=== PATIENT | female | born 1965 | race American Indian/Alaskan Native ===

== ENCOUNTER 2016-08-24 20:06 | Emergency (ER) | payer MEDICARE | END 2016-08-24 22:34 | disposition left against medical advice (07) | LOC: ED 20:06 | DX: M79.671 Pain in right foot (principal); Z53.21 Procedure and treatment not carried out due to patient leaving prior to being seen by health care provider ==

== ENCOUNTER 2016-08-25 13:34 | Emergency (ER) | payer OTHER, MEDICARE ==
[2016-08-25 15:09] VITALS: BP 154/95
[2016-08-25] MEDS ORDERED: NORCO 10/325 PO ONE (16:07)
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
== END 2016-08-25 17:56 | disposition home or self-care (01) ==
LOC: ED 13:34
DX: M79.671 Pain in right foot (principal); I10 Essential (primary) hypertension; E11.9 Type 2 diabetes mellitus without complications; K21.9 Gastro-esophageal reflux disease without esophagitis; F32.9 Major depressive disorder, single episode, unspecified; J45.909 Unspecified asthma, uncomplicated; J44.9 Chronic obstructive pulmonary disease, unspecified; F17.200 Nicotine dependence, unspecified, uncomplicated; F12.90 Cannabis use, unspecified, uncomplicated; Z79.82 Long term (current) use of aspirin; V89.2XXA Person injured in unspecified motor-vehicle accident, traffic, initial encounter; W22.11XA Striking against or struck by driver side automobile airbag, initial encounter; Y93.89 Activity, other specified; Y99.9 Unspecified external cause status; Y92.410 Unspecified street and highway as the place of occurrence of the external cause

== ENCOUNTER 2017-03-20 10:21 | Emergency (ER) | payer MEDICARE ==
[2017-03-20 11:25] LABS: Basophils % (Auto) 0.7 % (0.0-1.8); Eosinophils % (Auto) 4.6 % (0.0-4.3); Hematocrit 43.6 % (30.3-42.9); Hemoglobin 15.1 gm/dl (10.1-14.3); Mean Corpuscular HGB Conc 35 % (30-34); Mean Corpuscular Hemoglobin 31 pg (28-32); Mean Corpuscular Volume 90 fl (79-97); Platelet Count 172 K/mm3 (140-440); Red Blood Count 4.83 M/mm3 (3.65-5.03); Red Cell Distribution Width 13.7 % (13.2-15.2); White Blood Count 7.2 K/mm3 (4.5-11.0)
[2017-03-20 11:43] LABS: Anion Gap 17 mmol/L; BUN/Creatinine Ratio 14.28; Blood Urea Nitrogen 10 mg/dL (7-17); Calcium 9.2 mg/dL (8.4-10.2); Carbon Dioxide 26 mmol/L (22-30); Chloride 102.2 mmol/L (98-107); Glucose 108 mg/dL (65-100); Potassium 4.3 mmol/L (3.6-5.0); Sodium 141 mmol/L (137-145)
[2017-03-20] MEDS ORDERED: SUBLIMAZE IV ONE (17:35)
[2017-03-20] MEDS ORDERED: NACL 0.9% 1000 ML 1,000 ML IV ONE (17:35)
[2017-03-20] MEDS ORDERED: PEPCID PO ONE (17:36)
[2017-03-20] MEDS ORDERED: ZOFRAN IV ONE (17:36)
--- NOTE | 2017-03-20 18:20 | Emergency Department Report ---
HPI - General Chief Complaint: Chest Pain Time Seen by Provider: 03/20/17 16:40 - HPI HPI: The patient is a 51-year-old female who presents for evaluation of chest pain. The patient reports chest pain for the past 8 hours, constant since onset, 9/10 in severity, sharp in quality, exacerbated with movement. She submits that she believes her pain is secondary to stress/anxiety. The patient denies fever, trauma to the chest or back, syncope, hemoptysis, dyspnea, unilateral leg swelling, oral contraceptive use, recent immobilization, history of DVT or PE, recent cancer, history of familial coagulation disorder. ED Past Medical Hx - Past Medical History Previous Medical History?: Yes Hx Hypertension: Yes Hx Diabetes: Yes (oral) Hx GERD: Yes Hx Sickle Cell Disease: Yes (trait) Hx Psychiatric Treatment: Yes (DEPRESSION, PANIC ATTACKS) Hx Asthma: Yes Hx COPD: Yes Additional medical history: back pain - Surgical History Past Surgical History?: Yes Additional Surgical History: PARTIAL HYSTERECTOMY. RIGHT ACHILES TENDON REPAIR. FIBROIDS - Social History Smoking Status: Current Every Day Smoker Substance Use Type: Prescribed - Medications Home Medications: Home Medications Medication Instructions Recorded Confirmed Last Taken Type Acetaminophen/Codeine [Tylenol 1 tab PO Q6H PRN #7 tab 11/13/14 06/04/16 Rx /Codeine # 3 tab] ALBUTEROL NEB's [Proventil 0.083% 1.25 mg INHALATION PRN PRN 12/19/15 06/04/16 06/04/16 06:30 History NEBS] Aspirin [Adult Low Dose Aspirin EC] 81 mg PO DAILY 12/19/15 06/04/16 05/28/16 History Cyanocobalamin [Vitamin B-12] 1,000 mcg IM QWEEK 12/19/15 06/04/16 04/30/16 History Ergocalciferol [Vitamin D2] 1 cap PO QWEEK 12/19/15 06/04/16 05/28/16 History Fluticasone [Flonase] 1 spray NS QDAY 12/19/15 06/04/16 06/03/16 18:00 History HYDROcodone/APAP 7.5-325 [[place] 1 each PO Q6HR PRN 12/19/15 06/04/16 05/28/16 History 7.5-325 mg TAB] Hydrochlorothiazide [HCTZ] 50 mg PO QWEEK 12/19/15 06/04/16 05/21/16 History Lisinopril/Hydrochlorothiazide 1 tab PO DAILY 12/19/15 06/04/16 06/03/16 18:00 History [Lisinopril-Hctz 20-12.5 mg Tab] Simvastatin [Zocor TAB] 40 mg PO QHS 12/19/15 06/04/16 06/03/16 18:00 History DULoxetine [Cymbalta] 30 mg PO BID 06/04/16 06/04/16 06/03/16 16:00 History Cyclobenzaprine HCl [Flexeril 5 MG 5 mg PO Q8HR PRN #15 tab 03/20/17 Unknown Rx TAB] ED Review of Systems ROS: Stated complaint: CHEST PAIN Other details as noted in HPI Constitutional: denies: fever ENT: denies: throat or neck pain Respiratory: denies: cough, shortness of breath Cardiovascular: reports chest pain Endocrine: denies unexplained weight loss or gain Gastrointestinal: denies: abdominal pain, nausea Genitourinary: denies: dysuria Musculoskeletal: denies: leg swelling Skin: denies: rash Neurological: denies: headache Hematological/Lymphatic: denies: easy bleeding or easy bruising Psych: denies sadness or hopelessness Physical Exam - Physical Exam Vital Signs: Vital Signs 03/20/17 03/20/17 03/20/17 10:49 16:30 16:31 Temperature 98.3 F 98.1 F Pulse Rate 79 68 Respiratory 18 20 20 Rate Blood Pressure 123/67 Blood Pressure 121/78 [Left] O2 Sat by Pulse 98 100 100 Oximetry Physical Exam: General: well-nourished, well-developed, no acute distress Head: Normocephalic, atraumatic Eyes: normal sclera ENT: Mucous membranes are pale and dry Neck: No neck stiffness, no cervical adenopathy Respiratory: Breath sounds equal bilaterally, no wheezing, rales, or rhonchi Cardio: S1 and S2 present, no murmurs, rubs, gallops, capillary refill is delayed Abdomen: Normoactive bowel sounds, soft abdomen, no rigidity, no guarding or rebound tenderness Chest WALL/Back: No tenderness to palpation of the chest wall, pain reporduced with abduction of the arms bilaterally at the shoulder joints Musc: No pitting edema Skin: No rash Neuro: no facial drooping, normal speech Psych: Normal affect ED Course Vital Signs 03/20/17 03/20/17 03/20/17 10:49 16:30 16:31 Temperature 98.3 F 98.1 F Pulse Rate 79 68 Respiratory 18 20 20 Rate Blood Pressure 123/67 Blood Pressure 121/78 [Left] O2 Sat by Pulse 98 100 100 Oximetry ED Medical Decision Making - Lab Data Result diagrams: 03/20/17 11:00 03/20/17 11:00 - Medical Decision Making The patient was seen and examined by myself. The patient is placed on a quality assurance monitor chassis and continuous pulse ox. On initial evaluation, the patient was found to be in no distress. EKG was negative for findings suggestive of acute cardiac infarct. Labs and imaging are obtained. Chest x-ray is negative for pneumothorax, focal consolidation, pulmonary vascular congestion, pleural effusion, or other obvious acute cardiopulmonary disease process. Lab results revealed elevated hemoglobin and hematocrit, consistent with hemoconcentration and exam findings of dehydration, and otherwise labs were non-concerning including levels of troponin, WBC, electrolytes, renal function. The patient given 1 L normal saline fluid bolus for treatment of her dehydration, and IV morphine for treatment of her pain. The patient was reevaluated and reported that their symptoms were markedly improved. As the patient has a RIKKI risk score less than 2, and a well's score less than 2, the patient is at low risk of ACS or pulmonary emboli etiology of their symptoms. The patient is stable for discharge with outpatient follow-up. The patient is given follow-up and return instructions. The patient expressed understanding and agreed with the plan. The patient is discharged in stable condition. Critical care attestation.: If time is entered above; I have spent that time in minutes in the direct care of this critically ill patient, excluding procedure time. ED Disposition Clinical Impression: Acute chest pain, Dehydration Disposition: - TO HOME OR SELFCARE Is pt being admited?: No Does the pt Need Aspirin: No Condition: Stable Instructions: Chest Pain (ED), Costochondritis (ED) Referrals: LESLIE BRANDT MD [Primary Care Provider] - 3-5 Days Time of Disposition: 18:31
--- NOTE | 2017-03-20 19:10 | XRay Report ---
FINAL REPORT PROCEDURE: XR CHEST 1V AP TECHNIQUE: Chest radiograph anteroposterior view. CPT 08926 HISTORY: chest pain COMPARISON: No prior studies are available for comparison. FINDINGS: Heart: Normal. Mediastinum/Vessels: Normal. Lungs/Pleural space: Normal. Bony thorax: No acute osseous abnormality. Life support devices: None. IMPRESSION: No acute cardiopulmonary abnormality.
[2017-03-20 22:51] VITALS: BP 128/77
== END 2017-03-20 22:51 | disposition home or self-care (01) ==
LOC: ED 10:21
DX: R07.9 Chest pain, unspecified (principal); E86.0 Dehydration; I10 Essential (primary) hypertension; E11.9 Type 2 diabetes mellitus without complications; J45.909 Unspecified asthma, uncomplicated; J44.9 Chronic obstructive pulmonary disease, unspecified; F17.200 Nicotine dependence, unspecified, uncomplicated
CPT/HCPCS: 36415; 71010; 80048; 84484; 85025; 93005; 93010; 96361; 96374; 96375; 99284; J2405; J3010; J7030

== ENCOUNTER 2017-08-16 04:34 | Emergency (ER) | payer MEDICARE | END 2017-08-16 04:45 | disposition left against medical advice (07) | LOC: ED 04:34 | DX: R42 Dizziness and giddiness (principal); R10.9 Unspecified abdominal pain; Z53.21 Procedure and treatment not carried out due to patient leaving prior to being seen by health care provider ==

== ENCOUNTER 2019-01-25 06:46 | Outpatient (CLI) | payer MEDICARE ==
--- NOTE | 2019-01-25 08:33 | Magnetic Resonance Report ---
MRI lumbar spine without contrast HISTORY: LUMBAR SPONDYLOSIS/M47.817spondylosis without myelopathy or radic. Patient also complains o f right-sided foot numbness and pain. TECHNIQUE: Multiplanar, multiphasic imaging performed without the use of intravenous contrast. COMPARISON: None FINDINGS: Alignment: Normal. Soft tissues: No cord signal abnormality identified. No significant incidental soft tissue finding. Levels: T11/12-L2/3: Mild discogenic DJD and facet arthropathy with no significant disc bulge, canal stenosis , or foraminal stenosis. L3/4: Mild-moderate discogenic DJD and facet arthropathy with ligamentum flavum hypertrophy. There is resultant mild bilateral foraminal stenosis. There is mild canal narrowing as well, but no significa nt stenosis. L4/5-L5/S1: Mild discogenic DJD with moderate facet arthropathy, very small/small broad-based disc bu lges, and ligamentum flavum hypertrophy. This constellation of findings results in mild canal narrowi ng but no significant stenosis, and mild bilateral foraminal stenosis at both levels. IMPRESSION: Multilevel spondylosis as detailed level by level above. Signer Name: John Ho MD Signed: 01/25/2019 8:29 AM Workstation Name: [email or web address]
== END 2019-01-25 06:47 | disposition home or self-care (01) ==
LOC: MRI 06:46
PROVIDERS: ATTEND Physical Medicine & Rehabilitation Pain Medicine
DX: M47.816 Spondylosis without myelopathy or radiculopathy, lumbar region (principal); M48.07 Spinal stenosis, lumbosacral region; E78.00 Pure hypercholesterolemia, unspecified; J44.9 Chronic obstructive pulmonary disease, unspecified; K21.9 Gastro-esophageal reflux disease without esophagitis
CPT/HCPCS: 72148

== ENCOUNTER 2021-07-26 09:33 | Emergency (ER) | payer BC, MEDICARE ==
[2021-07-26] MEDS ORDERED: HYDROmorphone 1 MG/1 ML INJ IV ONE ×3 (11:42→16:23)
[2021-07-26] MEDS ORDERED: SODIUM CHLORIDE 0.9% 1000 ML 1,000 ML IV ONE (11:42)
[2021-07-26] MEDS ORDERED: ONDANSETRON 4 MG/2 ML INJ IV ONE (11:42)
[2021-07-26 11:55] LABS: Bilirubin,Urine NEG (Negative); Blood,Urine NEG (Negative); Color,Urine Yellow (Yellow); Protein,Urine <15 mg/dL mg/dL (Negative); RBC,Urine < 1.0 /HPF (0.0-6.0); Urobilinogen,Urine < 2.0 mg/dL (<2.0); WBC,Urine < 1.0 /HPF (0.0-6.0)
[2021-07-26 12:03] LABS: Amphetamine Screen,Urine Negative; Benzodiazepines Screen,Urine Negative; Cannabinoid Screen,Urine Negative; Cocaine Screen,Urine Negative; Methadone Screen,Urine Negative; Opiate Screen,Urine Negative
[2021-07-26 12:12] LABS: Basophils # (Auto) 0.1 K/mm3 (0.0-0.1); Eosinophils # (Auto) 0.3 K/mm3 (0.0-0.4); Eosinophils % (Auto) 5.1 % (0.0-4.3); Hematocrit 44.9 % (30.3-42.9); Hemoglobin 14.7 gm/dl (10.1-14.3); Lymphocytes # (Auto) 2.6 K/mm3 (1.2-5.4); Lymphocytes % (Auto) 44.5 % (13.4-35.0); Mean Corpuscular HGB Conc 33 % (30-34); Mean Corpuscular Volume 92 fl (79-97); Monocytes # (Auto) 0.5 K/mm3 (0.0-0.8); Monocytes % (Auto) 8.8 % (0.0-7.3); Platelet Count 211 K/mm3 (140-440); Red Blood Count 4.86 M/mm3 (3.65-5.03); Red Cell Distribution Width 13.5 % (13.2-15.2)
--- NOTE | 2021-07-26 12:13 | Emergency Department Report ---
ED N/V/D HPI - General Chief complaint: Weakness Stated complaint: weakness Time Seen by Provider: 07/26/21 11:18 Source: EMS Mode of arrival: Stretcher Limitations: No Limitations - History of Present Illness Initial comments: 56-year-old female with past medical history morbid obesity, COPD, diabetes, GERD, hypertension, depression, chronic pain secondary to peripheral neuropathy currently in pain management presents to the hospital with complaints of severe lower extremity pain again a difficult for her to work. Patient states for the last 2 days she has nausea and vomiting with p.o. intolerance to ambulate tolerating her medications including her blood pressure medication and pain medication. She complains of moderate pelvic abdominal pain worse on the left and with palpation. Denies diarrhea, hematemesis, fever, or dysuria. She has been unable to tolerate her gabapentin 800 mg 3 times daily and Percocet 5/325 3 times daily secondary to vomiting. She now presents with severe neuropathy pain from her toes radiating to her back limiting her ability to stand up and ambulate. Multiple patient has had multiple abdominal surgery secondary to uterine fibroids and hysterectomy. Patient is vaccinated for COVID. PMD: Dr. Kennedy. Pain management doctor: Dr. Patel - Related Data Home Medications Medication Instructions Recorded Confirmed Last Taken ALBUTEROL NEB's [Proventil 0.083% 1.25 mg INHALATION PRN PRN 12/19/15 06/04/16 06/04/16 06:30 NEBS] Aspirin [Adult Low Dose Aspirin EC] 81 mg PO DAILY 12/19/15 06/04/16 05/28/16 Cyanocobalamin [Vitamin B-12] 1,000 mcg IM QWEEK 12/19/15 06/04/16 04/30/16 Ergocalciferol [Vitamin D2] 1 cap PO QWEEK 12/19/15 06/04/16 05/28/16 Fluticasone [Flonase] 1 spray NS QDAY 12/19/15 06/04/16 06/03/16 18:00 HYDROcodone/APAP 7.5-325 [[place] 1 each PO Q6HR PRN 12/19/15 06/04/16 05/28/16 7.5-325 mg TAB] Hydrochlorothiazide [HCTZ] 50 mg PO QWEEK 12/19/15 06/04/16 05/21/16 Lisinopril/Hydrochlorothiazide 1 tab PO DAILY 12/19/15 06/04/16 06/03/16 18:00 [Lisinopril-Hctz 20-12.5 mg Tab] Simvastatin (NF) [Zocor TAB] 40 mg PO QHS 12/19/15 06/04/16 06/03/16 18:00 DULoxetine [Cymbalta] 30 mg PO BID 06/04/16 06/04/16 06/03/16 16:00 Previous Rx's Medication Instructions Recorded Last Taken Type Acetaminophen/Codeine [Tylenol 1 tab PO Q6H PRN #7 tab 11/13/14 05/07/16 Rx /Codeine # 3 tab] Cyclobenzaprine HCl [Flexeril 5 MG 5 mg PO Q8HR PRN #15 tab 03/20/17 Unknown Rx TAB] Ondansetron [Zofran Odt] 4 mg PO Q8HR PRN #20 tab.rapdis 07/26/21 Unknown Rx Allergies Allergy/AdvReac Type Severity Reaction Status Date / Time acetaminophen [From Lortab] AdvReac Itching Verified 07/26/21 12:44 hydrocodone bitartrate AdvReac Itching Verified 07/26/21 12:44 [From Lortab] ED Review of Systems ROS: Stated complaint: weakness Other details as noted in HPI Comment: All other systems reviewed and negative ED Past Medical Hx - Past Medical History Previous Medical History?: Yes Hx Hypertension: Yes Hx Diabetes: Yes (oral) Hx GERD: Yes Hx Sickle Cell Disease: Yes (trait) Hx Psychiatric Treatment: Yes (DEPRESSION, PANIC ATTACKS) Hx Asthma: Yes Hx COPD: Yes Additional medical history: back pain - Surgical History Past Surgical History?: Yes Additional Surgical History: PARTIAL HYSTERECTOMY. RIGHT ACHILES TENDON REPAIR. FIBROIDS - Social History Smoking Status: Never Smoker Substance Use Type: None - Medications Home Medications: Home Medications Medication Instructions Recorded Confirmed Last Taken Type Acetaminophen/Codeine [Tylenol 1 tab PO Q6H PRN #7 tab 11/13/14 06/04/16 05/07/16 Rx /Codeine # 3 tab] ALBUTEROL NEB's [Proventil 0.083% 1.25 mg INHALATION PRN PRN 12/19/15 06/04/16 06/04/16 06:30 History NEBS] Aspirin [Adult Low Dose Aspirin EC] 81 mg PO DAILY 12/19/15 06/04/16 05/28/16 History Cyanocobalamin [Vitamin B-12] 1,000 mcg IM QWEEK 12/19/15 06/04/16 04/30/16 History Ergocalciferol [Vitamin D2] 1 cap PO QWEEK 12/19/15 06/04/16 05/28/16 History Fluticasone [Flonase] 1 spray NS QDAY 12/19/15 06/04/16 06/03/16 18:00 History HYDROcodone/APAP 7.5-325 [[place] 1 each PO Q6HR PRN 12/19/15 06/04/16 05/28/16 History 7.5-325 mg TAB] Hydrochlorothiazide [HCTZ] 50 mg PO QWEEK 12/19/15 06/04/16 05/21/16 History Lisinopril/Hydrochlorothiazide 1 tab PO DAILY 12/19/15 06/04/16 06/03/16 18:00 History [Lisinopril-Hctz 20-12.5 mg Tab] Simvastatin (NF) [Zocor TAB] 40 mg PO QHS 12/19/15 06/04/16 06/03/16 18:00 History DULoxetine [Cymbalta] 30 mg PO BID 06/04/16 06/04/16 06/03/16 16:00 History Cyclobenzaprine HCl [Flexeril 5 MG 5 mg PO Q8HR PRN #15 tab 03/20/17 Unknown Rx TAB] Ondansetron [Zofran Odt] 4 mg PO Q8HR PRN #20 tab.rapdis 07/26/21 Unknown Rx ED Physical Exam - General Limitations: No Limitations - Other Other exam information: General: No acute distress Head: Atraumatic Eyes: normal appearance ENT: Moist mucous membranes Neck: Normal appearance, no midline tenderness Chest: Clear to auscultation bilaterally CV: Regular rate and rhythm. Heart rate 76 during my examination Abdomen: Soft, normal bowel sounds, nontender, nondistended, no rebound or guarding Back: Normal inspection Extremity: Mild pedal pitting edema, 2+ DP pulses, no discoloration or lesion Neuro: Alert O x 3, no facial asymmetry, speech clear, limited movement of left toes chronic as per pain, decreased sensation to bilateral feet chronic as per patient Psych: Appropriate behavior Skin: No rash ED Course Vital Signs 07/26/21 07/26/21 07/26/21 09:41 10:09 11:37 Temperature 98.2 F Pulse Rate 140 H Respiratory 18 Rate Blood Pressure Blood Pressure 168/98 [Left] O2 Sat by Pulse 100 96 100 Oximetry 07/26/21 07/26/21 07/26/21 11:45 12:00 12:14 Temperature 98.1 F Pulse Rate 83 74 Respiratory 16 14 15 Rate Blood Pressure 173/108 150/94 Blood Pressure 173/108 [Left] O2 Sat by Pulse 98 95 Oximetry 07/26/21 07/26/21 07/26/21 12:15 12:31 12:45 Temperature Pulse Rate 75 68 68 Respiratory 17 13 11 L Rate Blood Pressure 156/100 176/94 176/94 Blood Pressure [Left] O2 Sat by Pulse 98 95 98 Oximetry 07/26/21 07/26/21 07/26/21 13:01 13:15 13:31 Temperature Pulse Rate 82 77 69 Respiratory 13 12 11 L Rate Blood Pressure 173/99 173/99 163/96 Blood Pressure [Left] O2 Sat by Pulse 96 97 99 Oximetry 07/26/21 07/26/21 07/26/21 13:39 13:45 14:00 Temperature 98.6 F Pulse Rate 78 66 Respiratory 21 28 H Rate Blood Pressure 163/96 159/61 Blood Pressure [Left] O2 Sat by Pulse 99 100 Oximetry 07/26/21 07/26/21 07/26/21 14:29 14:31 14:35 Temperature Pulse Rate 68 83 Respiratory 13 16 12 Rate Blood Pressure 159/61 159/61 Blood Pressure [Left] O2 Sat by Pulse 100 99 Oximetry 07/26/21 07/26/21 07/26/21 14:45 15:01 15:15 Temperature Pulse Rate 67 66 69 Respiratory 11 L 13 11 L Rate Blood Pressure 148/90 156/95 156/95 Blood Pressure [Left] O2 Sat by Pulse 98 97 99 Oximetry 07/26/21 15:24 Temperature 98.4 F Pulse Rate Respiratory Rate Blood Pressure Blood Pressure [Left] O2 Sat by Pulse Oximetry - Reevaluation(s) Reevaluation #1: 07/26/21 15:42 pain currently 02/06, additional Dilaudid will be provided prior to discharge ED Medical Decision Making - Lab Data Result diagrams: 07/26/21 11:25 07/26/21 11:25 Lab Results 07/26/21 07/26/21 07/26/21 Range/Units 11:25 11:25 11:25 WBC 5.8 (4.5-11.0) K/mm3 RBC 4.86 (3.65-5.03) M/mm3 Hgb 14.7 H (10.1-14.3) gm/dl Hct 44.9 H (30.3-42.9) % MCV 92 (79-97) fl MCH 30 (28-32) pg MCHC 33 (30-34) % RDW 13.5 (13.2-15.2) % Plt Count 211 (140-440) K/mm3 Lymph % (Auto) 44.5 H (13.4-35.0) % [place] % (Auto) 8.8 H (0.0-7.3) % Eos % (Auto) 5.1 H (0.0-4.3) % Baso % (Auto) 1.0 (0.0-1.8) % Lymph # (Auto) 2.6 (1.2-5.4) K/mm3 [place] # (Auto) 0.5 (0.0-0.8) K/mm3 Eos # (Auto) 0.3 (0.0-0.4) K/mm3 Baso # (Auto) 0.1 (0.0-0.1) K/mm3 Seg Neutrophils % 40.6 (40.0-70.0) % Seg Neutrophils # 2.4 (1.8-7.7) K/mm3 Sodium 141 (137-145) mmol/L Potassium 4.4 (3.6-5.0) mmol/L Chloride 104.5 (98-107) mmol/L Carbon Dioxide 26 (22-30) mmol/L Anion Gap 15 mmol/L BUN 9 (7-17) mg/dL Creatinine 0.5 L (0.6-1.2) mg/dL Estimated GFR > 60 ml/min BUN/Creatinine Ratio 18 % Glucose 129 H (65-100) mg/dL POC Glucose 120 H (70-105) mg/dL Calcium 9.0 (8.4-10.2) mg/dL Magnesium (1.7-2.3) mg/dL Total Bilirubin 0.40 (0.1-1.2) mg/dL AST 17 (5-40) units/L ALT 26 (7-56) units/L Alkaline Phosphatase 85 (35-129) units/L Troponin T < 0.010 (0.00-0.029) ng/mL Total Protein 6.5 (6.3-8.2) g/dL Albumin 4.1 (3.9-5) g/dL Albumin/Globulin Ratio 1.7 % Lipase (13-60) units/L TSH (0.270-4.200) mlU/mL Free T4 (0.76-1.46) ng/dL Urine Color (Yellow) Urine Turbidity (Clear) Urine pH (5.0-7.0) Ur Specific [place] (1.003-1.030) Urine Protein (Negative) mg/dL Urine Glucose (UA) (Negative) mg/dL Urine Ketones (Negative) mg/dL Urine Blood (Negative) Urine Nitrite (Negative) Urine Bilirubin (Negative) Urine Urobilinogen (<2.0) mg/dL Ur Leukocyte Esterase (Negative) Urine WBC (Auto) (0.0-6.0) /HPF Urine RBC (Auto) (0.0-6.0) /HPF Urine Opiates Screen Urine Methadone Screen Ur Barbiturates Screen Ur Phencyclidine Scrn Ur Amphetamines Screen U Benzodiazepines Scrn Urine Cocaine Screen U Marijuana (THC) Screen Drugs of Abuse Note 07/26/21 07/26/21 07/26/21 Range/Units 11:30 11:30 Unknown WBC (4.5-11.0) K/mm3 RBC (3.65-5.03) M/mm3 Hgb (10.1-14.3) gm/dl Hct (30.3-42.9) % MCV (79-97) fl MCH (28-32) pg MCHC (30-34) % RDW (13.2-15.2) % Plt Count (140-440) K/mm3 Lymph % (Auto) (13.4-35.0) % [place] % (Auto) (0.0-7.3) % Eos % (Auto) (0.0-4.3) % Baso % (Auto) (0.0-1.8) % Lymph # (Auto) (1.2-5.4) K/mm3 [place] # (Auto) (0.0-0.8) K/mm3 Eos # (Auto) (0.0-0.4) K/mm3 Baso # (Auto) (0.0-0.1) K/mm3 Seg Neutrophils % (40.0-70.0) % Seg Neutrophils # (1.8-7.7) K/mm3 Sodium (137-145) mmol/L Potassium (3.6-5.0) mmol/L Chloride (98-107) mmol/L Carbon Dioxide (22-30) mmol/L Anion Gap mmol/L BUN (7-17) mg/dL Creatinine (0.6-1.2) mg/dL Estimated GFR ml/min BUN/Creatinine Ratio % Glucose (65-100) mg/dL POC Glucose (70-105) mg/dL Calcium (8.4-10.2) mg/dL Magnesium 2.00 (1.7-2.3) mg/dL Total Bilirubin (0.1-1.2) mg/dL AST (5-40) units/L ALT (7-56) units/L Alkaline Phosphatase (35-129) units/L Troponin T (0.00-0.029) ng/mL Total Protein (6.3-8.2) g/dL Albumin (3.9-5) g/dL Albumin/Globulin Ratio % Lipase (13-60) units/L TSH 1.090 (0.270-4.200) mlU/mL Free T4 1.03 (0.76-1.46) ng/dL Urine Color Yellow (Yellow) Urine Turbidity Slightly-cloudy (Clear) Urine pH 6.0 (5.0-7.0) Ur Specific [place] 1.010 (1.003-1.030) Urine Protein <15 mg/dl (Negative) mg/dL Urine Glucose (UA) Neg (Negative) mg/dL Urine Ketones Neg (Negative) mg/dL Urine Blood Neg (Negative) Urine Nitrite Neg (Negative) Urine Bilirubin Neg (Negative) Urine Urobilinogen < 2.0 (<2.0) mg/dL Ur Leukocyte Esterase Neg (Negative) Urine WBC (Auto) < 1.0 (0.0-6.0) /HPF Urine RBC (Auto) < 1.0 (0.0-6.0) /HPF Urine Opiates Screen Urine Methadone Screen Ur Barbiturates Screen Ur Phencyclidine Scrn Ur Amphetamines Screen U Benzodiazepines Scrn Urine Cocaine Screen U Marijuana (THC) Screen Drugs of Abuse Note 07/26/21 07/26/21 Range/Units Unknown Unknown WBC (4.5-11.0) K/mm3 RBC (3.65-5.03) M/mm3 Hgb (10.1-14.3) gm/dl Hct (30.3-42.9) % MCV (79-97) fl MCH (28-32) pg MCHC (30-34) % RDW (13.2-15.2) % Plt Count (140-440) K/mm3 Lymph % (Auto) (13.4-35.0) % [place] % (Auto) (0.0-7.3) % Eos % (Auto) (0.0-4.3) % Baso % (Auto) (0.0-1.8) % Lymph # (Auto) (1.2-5.4) K/mm3 [place] # (Auto) (0.0-0.8) K/mm3 Eos # (Auto) (0.0-0.4) K/mm3 Baso # (Auto) (0.0-0.1) K/mm3 Seg Neutrophils % (40.0-70.0) % Seg Neutrophils # (1.8-7.7) K/mm3 Sodium (137-145) mmol/L Potassium (3.6-5.0) mmol/L Chloride (98-107) mmol/L Carbon Dioxide (22-30) mmol/L Anion Gap mmol/L BUN (7-17) mg/dL Creatinine (0.6-1.2) mg/dL Estimated GFR ml/min BUN/Creatinine Ratio % Glucose (65-100) mg/dL POC Glucose (70-105) mg/dL Calcium (8.4-10.2) mg/dL Magnesium (1.7-2.3) mg/dL Total Bilirubin (0.1-1.2) mg/dL AST (5-40) units/L ALT (7-56) units/L Alkaline Phosphatase (35-129) units/L Troponin T (0.00-0.029) ng/mL Total Protein (6.3-8.2) g/dL Albumin (3.9-5) g/dL Albumin/Globulin Ratio % Lipase 15 (13-60) units/L TSH (0.270-4.200) mlU/mL Free T4 (0.76-1.46) ng/dL Urine Color (Yellow) Urine Turbidity (Clear) Urine pH (5.0-7.0) Ur Specific [place] (1.003-1.030) Urine Protein (Negative) mg/dL Urine Glucose (UA) (Negative) mg/dL Urine Ketones (Negative) mg/dL Urine Blood (Negative) Urine Nitrite (Negative) Urine Bilirubin (Negative) Urine Urobilinogen (<2.0) mg/dL Ur Leukocyte Esterase (Negative) Urine WBC (Auto) (0.0-6.0) /HPF Urine RBC (Auto) (0.0-6.0) /HPF Urine Opiates Screen Negative Urine Methadone Screen Negative Ur Barbiturates Screen Negative Ur Phencyclidine Scrn Negative Ur Amphetamines Screen Negative U Benzodiazepines Scrn Negative Urine Cocaine Screen Negative U Marijuana (THC) Screen Negative Drugs of Abuse Note Disclamer - EKG Data -: EKG Interpreted by Fl EKG shows normal: sinus rhythm, intervals (qtc 435), QRS complexes (qrsd 99), ST-T waves (no stemi) Rate: normal - EKG Data When compared to previous EKG there are: no significant change - Radiology Data Radiology results: report reviewed CT ABDOMEN AND PELVIS WITH IV CONTRAST INDICATION: n,v po intolerance lower abd pain, hx of hysterect. COMPARISON: CT 11/13/2014. TECHNIQUE: All CT scans at this facility use dose modulation, automated exposure control, iterative reconstruction or weight based dosing, when appropriate, to reduce radiation dose to as low as reasonably achievable. FINDINGS: Lung Bases: No significant abnormality. Skeletal System: No acute abnormality. ABDOMEN: Liver: There is diffuse hepatic steatosis. Gallbladder: No significant abnormality. Bile Ducts: No significant abnormality. Adrenals: No significant abnormality. Right Kidney: No significant abnormality. Left Kidney: No significant abnormality. Pancreas: No significant abnormality. Spleen: No significant abnormality. Upper GI tract: No significant abnormality. Lymph Nodes: No significant adenopathy. Aorta: No significant abnormality. Additional Findings: There is a stable small fat-containing periumbilical ventral hernia. PELVIS: Colon: No acute abnormality. Diverticulosis is noted. Urinary Bladder and Distal Ureters: No significant abnormality. Appendix: No significant abnormality. Lymph Nodes: No significant adenopathy. Additional Findings: There is a 4.4 cm left ovarian cyst IMPRESSION: 1. No acute process in the abdomen or pelvis. 2. 4.4 cm left ovarian cyst. Given the patient's age, follow-up sonography would be useful to confirm stability over time. 3. Additional, incidental findings as above. - Medical Decision Making 56-year-old female presents to the hospital with nausea vomiting inability to tolerate meds. Patient exacerbation of chronic peripheral neuropathy pain. She is chronically on gabapentin and Percocet. CT abdomen pelvic reveak no acute abdominal findings. Left ovarian cyst noted. Patient received gabapentin Dilaudid, Zofran, and normal saline with improvement in symptoms. Outpatient follow-up advised with PMD, parking line painter, and [employer] doctor recommended pt provided one additional dose of dilaudid prior to d/c no vomiting in ed, tolerating po intake Critical Care Time: No Critical care attestation.: If time is entered above; I have spent that time in minutes in the direct care of this critically ill patient, excluding procedure time. ED Disposition Clinical Impression: Vomiting, Left ovarian cyst, Chronic pain, Peripheral neuropathy, Under care of parking line painter Disposition: 01 HOME / SELF CARE / HOMELESS Is pt being admited?: No Does the pt Need Aspirin: No Condition: Stable Instructions: Ovarian Cyst, [id number], Peripheral Neuropathy, Chronic Pain, Adult, Nausea and Vomiting, Adult Additional Instructions: Take the medication as prescribed. Follow-up with your doctors (at the car, Dr. Patel, and DR Mccoy hair mixer ) return if symptoms worsen as indicated by your discharge instructions. Prescriptions: Ondansetron [Zofran Odt] 4 mg PO Q8HR PRN #20 tab.rapdis PRN Reason: Nausea And Vomiting Referrals: PRIMARY CARE, [Primary Care Provider] - 3-5 Days DANIEL KENNEDY MD [Staff Physician] - 3-5 Days KAREL MCCOY MD [Staff Physician] - 3-5 Days Time of Disposition: 15:44
[2021-07-26 12:33] LABS: Alanine Aminotransferase 26 units/L (7-56); Albumin 4.1 g/dL (3.9-5); BUN/Creatinine Ratio 18; Blood Urea Nitrogen 9 mg/dL (7-17); Hemolysis Index 7
[2021-07-26 12:41] LABS: Free T4 (Free Thyroxine) 1.03 ng/dL (0.76-1.46)
[2021-07-26] MEDS ORDERED: GABAPENTIN 400 MG CAP PO ONE (13:53)
--- NOTE | 2021-07-26 14:59 | Cat Scan Report ---
CT ABDOMEN AND PELVIS WITH IV CONTRAST INDICATION: n,v po intolerance lower abd pain, hx of hysterect. COMPARISON: CT 11/13/2014. TECHNIQUE: All CT scans at this facility use dose modulation, automated exposure control, iterative reconstructi on or weight based dosing, when appropriate, to reduce radiation dose to as low as reasonably achieva ble. FINDINGS: Lung Bases: No significant abnormality. Skeletal System: No acute abnormality. ABDOMEN: Liver: There is diffuse hepatic steatosis. Gallbladder: No significant abnormality. Bile Ducts: No significant abnormality. Adrenals: No significant abnormality. Right Kidney: No significant abnormality. Left Kidney: No significant abnormality. Pancreas: No significant abnormality. Spleen: No significant abnormality. Upper GI tract: No significant abnormality. Lymph Nodes: No significant adenopathy. Aorta: No significant abnormality. Additional Findings: There is a stable small fat-containing periumbilical ventral hernia. PELVIS: Colon: No acute abnormality. Diverticulosis is noted. Urinary Bladder and Distal Ureters: No significant abnormality. Appendix: No significant abnormality. Lymph Nodes: No significant adenopathy. Additional Findings: There is a 4.4 cm left ovarian cyst IMPRESSION: 1. No acute process in the abdomen or pelvis. 2. 4.4 cm left ovarian cyst. Given the patient's age, follow-up sonography would be useful to confir m stability over time. 3. Additional, incidental findings as above. Signer Name: Humberto Liu MD Signed: 07/26/2021 2:55 PM Workstation Name: [id number]
[2021-07-26 15:24] VITALS: BP 156/95
--- NOTE | 2021-07-27 10:24 | Electrocardiograph Report ---
[facility] Test Date: 2021-07-26 Test Time: 13:39:29 Pat Name: YONAS LUZ Department: Room: Gender: F Traffic Control Signaler: JAMAL : 1965 Requested By: AVE BRUNO Order Number: [id number] Reading MD: Marcelino Fitzgerald Measurements Intervals [place] Rate: 67 P: 40 CT: 133 QRS: 28 QRSD: 99 T: 57 QT: 412 QTc: 435 Interpretive Statements Sinus rhythm No previous ECG available for comparison Electronically Signed On 07-27-2021 10:24:06 EST by Marcelino Fitzgerald
== END 2021-07-26 16:43 | disposition home or self-care (01) ==
LOC: ED 09:33
DX: R11.2 Nausea with vomiting, unspecified (principal); N83.202 Unspecified ovarian cyst, left side; G89.29 Other chronic pain; G62.9 Polyneuropathy, unspecified; J45.909 Unspecified asthma, uncomplicated; I10 Essential (primary) hypertension; Z88.6 Allergy status to analgesic agent; Z88.5 Allergy status to narcotic agent
CPT/HCPCS: 36415; 74177; 80053; 80307; 81001; 82962; 83690; 83735; 84439; 84443; 84484; 85025; 93005; 93010; 96374; 96375; 96376; 99285; J1170; J2405; J7030; Q9967; Q0162

== ENCOUNTER 2021-08-07 09:05 | Emergency (ER) | payer BC, MEDICARE ==
--- NOTE | 2021-08-07 09:38 | Event Note ---
ED Screening Note ED Screening Note: 56yo aa comes to er in tears with ble pain and weakness Due to back injury years ago she has known left foot drop; when she walks it drags She sees pain management - yesterday she developed inc pain of rle and incontinence of urine. She states she has pain in her pelvic area and now can not walk at all. PMH DM NEUROPAHTY LUMBAR INJURY WITH EBILITY HTN HLD RX CHYNA OXY GLIPIZIDE LOSARTAN STATIN HCTZ This initial assessment/diagnostic orders/clinical plan/treatment(s) is/are subject to change based on patients health status, clinical progression and re- assessment by fellow clinical providers in the ED. Further treatment and workup at subsequent clinical providers discretion. Patient/guardian urged not to elope from the ED as their condition may be serious if not clinically assessed and managed. Initial orders include: RO UTI/CAUDA EQUINA PAIN MANAGEMENT
[2021-08-07] MEDS ORDERED: SODIUM CHLORIDE 0.9% 1000 ML 1,000 ML IV ONE (09:42)
[2021-08-07 10:09] LABS: Basophils # (Auto) 0.1 K/mm3 (0.0-0.1); Eosinophils # (Auto) 0.3 K/mm3 (0.0-0.4); Hematocrit 45.5 % (30.3-42.9); Lymphocytes # (Auto) 2.1 K/mm3 (1.2-5.4); Lymphocytes % (Auto) 38.5 % (13.4-35.0); Mean Corpuscular HGB Conc 33 % (30-34); Mean Corpuscular Volume 93 fl (79-97); Monocytes # (Auto) 0.5 K/mm3 (0.0-0.8); Monocytes % (Auto) 9.4 % (0.0-7.3); Platelet Count 202 K/mm3 (140-440); Red Blood Count 4.91 M/mm3 (3.65-5.03); Red Cell Distribution Width 13.6 % (13.2-15.2)
[2021-08-07 10:26] LABS: Alanine Aminotransferase 27 units/L (7-56); Albumin 4.1 g/dL (3.9-5); Blood Urea Nitrogen 11 mg/dL (7-17); Calcium 9.4 mg/dL (8.4-10.2); Hemolysis Index 9
[2021-08-07 10:27] LABS: BUN/Creatinine Ratio 18
--- NOTE | 2021-08-07 11:30 | Cat Scan Report ---
CT LUMBAR SPINE: 08/07/2021 INDICATION / CLINICAL INFORMATION: NEW RLE WEAKNESS AND INCONTINENCE 100 ML OMNI 300 . COMPARISON: None available. FINDINGS: CT images of the lumbar spine were obtained. Images are evaluated in the axial, coronal, and sagittal planes. There is no evidence of acute abnormality. Vertebral body height and alignment is well preserved. Th ere is no evidence of osseous canal or foraminal narrowing. Actwiv-by-fbddh ratio is limited due to limitations created by patient body habitus. There is underly ing diffuse disc bulging present at all levels. There is evidence of possible soft tissue obscuration and narrowing of the neural foramina bilaterally at all levels in the mid and lower lumbar spine. There is no evidence of endplate destructive changes to suggest underlying discitis. It would be difficult to fully exclude epidural fluid collection or mass. PARASPINAL STRUCTURES: Unremarkable. IMPRESSION: No acute abnormality. Degenerative change, consisting of disc bulging resulting in moderate canal narrowing and bilateral f oraminal narrowing throughout the lumbar spine. All CT scans at this location are performed using dose reduction to ALARA by means of automated expos ure control. Signer Name: Jorge Mitchell MD Signed: 08/07/2021 11:25 AM Workstation Name: [id number]
[2021-08-07] MEDS ORDERED: ONDANSETRON 4 MG/2 ML INJ IV ONE (12:40)
[2021-08-07] MEDS ORDERED: MORPHINE 4 MG/1 ML INJ IV ONE (12:40)
[2021-08-07] MEDS ORDERED: traMADol 50 MG TAB PO ONE (14:45)
--- NOTE | 2021-08-07 14:47 | Emergency Department Report ---
ED N/V/D HPI - General Chief complaint: Nausea/Vomiting/Diarrhea Stated complaint: VOMITING/LFT LEG PAIN/WEAKNESS Time Seen by Provider: 08/07/21 09:38 Source: patient Mode of arrival: Wheelchair Limitations: No Limitations - History of Present Illness Initial comments: pt presents to ed with complaint of right leg pain and vomiting MD complaint: nausea, vomiting -: Gradual, days(s) Location: diffuse Radiation: none - Related Data Home Medications Medication Instructions Recorded Confirmed Last Taken Aspirin [Adult Low Dose Aspirin EC] 81 mg PO DAILY 12/19/15 06/04/16 05/28/16 Hydrochlorothiazide [HCTZ] 50 mg PO QWEEK 12/19/15 06/04/16 05/21/16 Simvastatin (NF) [Zocor TAB] 40 mg PO QHS 12/19/15 06/04/16 06/03/16 18:00 DULoxetine [Cymbalta] 30 mg PO BID 06/04/16 06/04/16 06/03/16 16:00 Allergies Allergy/AdvReac Type Severity Reaction Status Date / Time acetaminophen [From Lortab] AdvReac Itching Verified 07/26/21 12:44 hydrocodone bitartrate AdvReac Itching Verified 07/26/21 12:44 [From Lortab] ED Review of Systems ROS: Stated complaint: VOMITING/LFT LEG PAIN/WEAKNESS Other details as noted in HPI Constitutional: denies: chills, fever Eyes: denies: eye pain, eye discharge, vision change ENT: denies: ear pain, throat pain Respiratory: denies: cough, shortness of breath, wheezing Cardiovascular: denies: chest pain, palpitations Endocrine: no symptoms reported Gastrointestinal: denies: abdominal pain, nausea, diarrhea Genitourinary: denies: urgency, dysuria, discharge Musculoskeletal: denies: back pain, joint swelling, arthralgia Skin: denies: rash, lesions Neurological: denies: headache, weakness, paresthesias Psychiatric: denies: anxiety, depression Hematological/Lymphatic: denies: easy bleeding, easy bruising ED Past Medical Hx - Past Medical History Previous Medical History?: Yes Hx Hypertension: Yes Hx Diabetes: Yes (oral) Hx GERD: Yes Hx Sickle Cell Disease: Yes (trait) Hx Psychiatric Treatment: Yes (DEPRESSION, PANIC ATTACKS) Hx Asthma: Yes Hx COPD: Yes Additional medical history: back pain - Surgical History Past Surgical History?: Yes Additional Surgical History: PARTIAL HYSTERECTOMY. RIGHT ACHILES TENDON REPAIR. FIBROIDS - Social History Smoking Status: Never Smoker Substance Use Type: None - Medications Home Medications: Home Medications Medication Instructions Recorded Confirmed Last Taken Type Aspirin [Adult Low Dose Aspirin EC] 81 mg PO DAILY 12/19/15 06/04/16 05/28/16 History Hydrochlorothiazide [HCTZ] 50 mg PO QWEEK 12/19/15 06/04/16 05/21/16 History Simvastatin (NF) [Zocor TAB] 40 mg PO QHS 12/19/15 06/04/16 06/03/16 18:00 History DULoxetine [Cymbalta] 30 mg PO BID 06/04/16 06/04/16 06/03/16 16:00 History ED Physical Exam - General Limitations: No Limitations General appearance: alert, in no apparent distress - Head Head exam: Present: atraumatic, normocephalic - Eye Eye exam: Present: normal appearance - ENT ENT exam: Present: mucous membranes moist - Neck Neck exam: Present: normal inspection - Respiratory Respiratory exam: Present: normal lung sounds bilaterally. Absent: respiratory distress - Cardiovascular Cardiovascular Exam: Present: regular rate, normal rhythm. Absent: systolic murmur, diastolic murmur, rubs, gallop - GI/Abdominal GI/Abdominal exam: Present: soft, normal bowel sounds - Extremities Exam Extremities exam: Present: normal inspection - Back Exam Back exam: Present: normal inspection - Neurological Exam Neurological exam: Present: alert, oriented X3 - Psychiatric Psychiatric exam: Present: normal affect, normal mood - Skin Skin exam: Present: warm, dry, intact, normal color. Absent: rash ED Course Vital Signs 08/07/21 09:20 Temperature 98.7 F Pulse Rate 98 H Respiratory 16 Rate Blood Pressure 145/88 [Left] O2 Sat by Pulse 100 Oximetry - Reevaluation(s) Reevaluation #1: 08/07/21 14:46 work up nge , pain meds given rpeated visitis fort he same ED Medical Decision Making - Lab Data Result diagrams: 08/07/21 09:46 08/07/21 09:46 Critical care attestation.: If time is entered above; I have spent that time in minutes in the direct care of this critically ill patient, excluding procedure time. ED Disposition Clinical Impression: Acute gastroenteritis, Nausea and vomiting Disposition: 01 HOME / SELF CARE / HOMELESS Is pt being admited?: No Does the pt Need Aspirin: No Condition: Stable Referrals: YUNG KENNEDY MD [Primary Care Provider] - 3-5 Days
[2021-08-07 14:56] LABS: RBC,Urine < 1.0 /HPF (0.0-6.0)
[2021-08-07 15:04] VITALS: BP 172/102
[2021-08-07 15:29] LABS: Bilirubin,Urine Negative (Negative); Color,Urine Straw (Yellow)
[2021-08-07 15:30] LABS: Blood,Urine Negative (Negative); Protein,Urine <15 mg/dL mg/dL (Negative); Urobilinogen,Urine < 2.0 mg/dL (<2.0); WBC,Urine < 1.0 /HPF (0.0-6.0)
== END 2021-08-07 15:05 | disposition home or self-care (01) ==
LOC: ED 09:05
DX: K52.9 Noninfective gastroenteritis and colitis, unspecified (principal); R11.2 Nausea with vomiting, unspecified; I10 Essential (primary) hypertension; E11.9 Type 2 diabetes mellitus without complications; K21.9 Gastro-esophageal reflux disease without esophagitis; D57.1 Sickle-cell disease without crisis; F32.A Depression, unspecified; J44.9 Chronic obstructive pulmonary disease, unspecified; Z79.899 Other long term (current) drug therapy; Z98.890 Other specified postprocedural states; Z88.1 Allergy status to other antibiotic agents; Z91.09 Other allergy status, other than to drugs and biological substances
CPT/HCPCS: 36415; 72132; 80053; 81001; 82962; 83690; 85025; 96361; 96374; 96375; 99284; J2270; J2405; J7030; Q9967; Q0162

== ENCOUNTER 2021-10-20 13:11 | Emergency (ER) | payer BC, MEDICARE ==
[2021-10-20] MEDS ORDERED: ONDANSETRON 4 MG ODT TAB PO ONE (14:11)
--- NOTE | 2021-10-20 14:21 | Emergency Department Report ---
ED General Adult HPI - General Chief complaint: Pain General Stated complaint: MUSCLE SPASM Time Seen by Provider: 10/20/21 13:52 Source: patient Mode of arrival: Ambulatory Limitations: No Limitations - History of Present Illness Initial comments: 56-year-old morbid obese -[place] female with presents to the emergency room complaining of having soreness and pain to her left shoulder. Patient states that she had her Pfizer vaccine booster 5 days ago and her left arm and since then she has been having pain down her arm and down her legs. Admits that she has peripheral disease. Patient states that she has not taken those medications in the last 2 days as she had vomited twice yesterday and vomited once this morning. Patient reports that she has not been able to hold anything down. patient does admit that she has been sipping water and has been able to hold that down. Onset/Timin -: days(s) Location: upper extremity (left shoulder) Radiation: distal Severity scale (0 -10): 10 Consistency: constant Improves with: none Worsens with: none Associated Symptoms: nausea/vomiting, weakness. denies: confusion, chest pain, cough, diaphoresis, fever/chills, headaches, loss of appetite, shortness of breath, syncope Treatments Prior to Arrival: none - Related Data Home Medications Medication Instructions Recorded Confirmed Last Taken Aspirin [Adult Low Dose Aspirin EC] 81 mg PO DAILY 12/19/15 10/20/21 05/28/16 Hydrochlorothiazide [HCTZ] 50 mg PO QWEEK 12/19/15 10/20/21 05/21/16 Simvastatin (NF) [Zocor TAB] 40 mg PO QHS 12/19/15 10/20/21 06/03/16 18:00 DULoxetine [Cymbalta] 30 mg PO BID 06/04/16 10/20/21 06/03/16 16:00 Gabapentin [Neurontin] 800 mg PO TID 10/20/21 10/20/21 10/18/21 Oxycodone HCl/Acetaminophen 1 each PO TID 10/20/21 10/20/21 10/18/21 [Oxycodone-Acetaminophen 10-325] Previous Rx's Medication Instructions Recorded Last Taken Type Dicyclomine [Bentyl] 10 mg PO QID #14 capsule 08/07/21 Unknown Rx Ondansetron [Zofran Odt] 4 mg PO Q8HR #14 tab.rapdis 08/07/21 Unknown Rx Ondansetron [Zofran Odt] 4 mg PO Q8HR #12 tab.rapdis 10/20/21 Unknown Rx Allergies Allergy/AdvReac Type Severity Reaction Status Date / Time acetaminophen [From Lortab] AdvReac Itching Verified 10/20/21 13:54 hydrocodone bitartrate AdvReac Itching Verified 10/20/21 13:54 [From Lortab] ED Review of Systems ROS: Stated complaint: MUSCLE SPASM Other details as noted in HPI Comment: All other systems reviewed and negative ED Past Medical Hx - Past Medical History Hx Hypertension: Yes Hx Diabetes: Yes (oral) Hx GERD: Yes Hx Sickle Cell Disease: Yes (trait) Hx Psychiatric Treatment: Yes (DEPRESSION, PANIC ATTACKS) Hx Asthma: Yes Hx COPD: Yes Additional medical history: back pain - Surgical History Additional Surgical History: PARTIAL HYSTERECTOMY. RIGHT ACHILES TENDON REPAIR. FIBROIDS - Social History Smoking Status: Never Smoker Substance Use Type: None - Medications Home Medications: Home Medications Medication Instructions Recorded Confirmed Last Taken Type Aspirin [Adult Low Dose Aspirin EC] 81 mg PO DAILY 12/19/15 10/20/21 05/28/16 History Hydrochlorothiazide [HCTZ] 50 mg PO QWEEK 12/19/15 10/20/21 05/21/16 History Simvastatin (NF) [Zocor TAB] 40 mg PO QHS 12/19/15 10/20/21 06/03/16 18:00 History DULoxetine [Cymbalta] 30 mg PO BID 06/04/16 10/20/21 06/03/16 16:00 History Dicyclomine [Bentyl] 10 mg PO QID #14 capsule 08/07/21 10/20/21 Unknown Rx Ondansetron [Zofran Odt] 4 mg PO Q8HR #14 tab.rapdis 08/07/21 10/20/21 Unknown Rx Gabapentin [Neurontin] 800 mg PO TID 10/20/21 10/20/21 10/18/21 History Ondansetron [Zofran Odt] 4 mg PO Q8HR #12 tab.rapdis 10/20/21 Unknown Rx Oxycodone HCl/Acetaminophen 1 each PO TID 10/20/21 10/20/2122 History [Oxycodone-Acetaminophen 10-325] ED Physical Exam - General Limitations: No Limitations General appearance: alert - Head Head exam: Present: atraumatic, normocephalic - Eye Eye exam: Present: normal appearance - ENT ENT exam: Present: mucous membranes moist - Neck Neck exam: Present: normal inspection, full ROM - Respiratory Respiratory exam: Absent: respiratory distress - Cardiovascular Cardiovascular Exam: Present: regular rate - Extremities Exam Extremities exam: Present: full ROM, tenderness - Expanded Upper Extremity Exam Left Shoulder Exam: Present: full ROM, tenderness Upper Arm exam: Present: normal inspection, full ROM, tenderness. Absent: swelling Elbow exam: Present: normal inspection, full ROM Forearm Wrist exam: Present: full ROM, tenderness. Absent: swelling Hand Wrist exam: Present: tenderness Vascular: Present: normal capillary refill. Absent: vascular compromise - Neurological Exam Neurological exam: Present: alert, oriented X3 - Psychiatric Psychiatric exam: Present: normal affect, normal mood - Skin Skin exam: Present: warm, dry, intact, normal color. Absent: rash ED Course Vital Signs 10/20/21 10/20/21 13:21 14:03 Temperature 98 F 98.4 F Pulse Rate 90 75 Respiratory 16 20 Rate Blood Pressure 122/78 132/86 [Left] O2 Sat by Pulse 96 100 Oximetry ED Medical Decision Making - Medical Decision Making 56-year-old morbid obese -[place] female with presents to the emergency room complaining of having soreness and pain to her left shoulder. Patient states that she had her Pfizer vaccine booster 5 days ago and her left arm and since then she has been having pain down her arm and down her legs. Admits that she has peripheral disease. Patient states that she has not taken those medications in the last 2 days as she had vomited twice yesterday and vomited once this morning. Patient reports that she has not been able to hold anything down. patient does admit that she has been sipping water and has been able to hold that down. Mireyafran for nausea and vomiting. Patient will have a PO challenge and be discharge to take her pain medication. Critical care attestation.: If time is entered above; I have spent that time in minutes in the direct care of this critically ill patient, excluding procedure time. ED Disposition Clinical Impression: Nausea after vaccination Disposition: HOME / SELF CARE / HOMELESS Is pt being admited?: No Does the pt Need Aspirin: No Condition: Stable Instructions: Nausea and Vomiting, Adult, [id number] Additional Instructions: Please take Zofran as needed for nausea and vomiting. Increase your fluids and advance your diet as tolerated. Take your pain medications when you get home. Prescriptions: Ondansetron [Zofran Odt] 4 mg PO Q8HR #12 tab.rapdis Referrals: Your, PCP [Other] - 3-5 Days Time of Disposition: 15:26
[2021-10-20 15:57] VITALS: BP 129/85
== END 2021-10-20 16:00 | disposition home or self-care (01) ==
LOC: ED 13:11
DX: R11.2 Nausea with vomiting, unspecified (principal); Z88.6 Allergy status to analgesic agent; E11.8 Type 2 diabetes mellitus with unspecified complications; I10 Essential (primary) hypertension; J45.909 Unspecified asthma, uncomplicated
CPT/HCPCS: 99282; J3490; Q0162